=== PATIENT | male | born 1950 | race Caucasian/White ===

== ENCOUNTER 2017-02-22 00:21 | Emergency (ER) | payer MEDICARE ==
[2017-02-22] MEDS ORDERED: ASPIRIN 81 MG TAB.CHEW PO ONE ×2 (00:25→00:39)
[2017-02-22] MEDS ORDERED: NITROGLYCERIN 0.4 MG/TAB BTL SL PRN (00:25)
[2017-02-22 00:34] LABS: Hematocrit 36.8 % (42.0-52.0); Hemoglobin 12.6 gm/dL (13.5-18.0); Mean Cell Volume 89.8 fl (78-100); Mean Corpuscular Hemoglobin 30.7 pg (27-31); Mean Corpuscular Hgb Conc 34.2 g/dl (32-36); Mean Platelet Volume 9.4 fl (6.0-9.5); Neutrophil # 5.9 K/mm3 (1.3-6.0); Neutrophil % 64.9 % (42-75.0); Platelet Count 219 K/mm3 (150-450); Red Cell Distribution Width 13.6 % (11.5-14.0); White Blood Count 9.1 K/mm3 (4.0-10.5)
[2017-02-22] MEDS ORDERED: ASPIRIN 81 MG TAB.CHEW ONE (00:36)
[2017-02-22 00:44] LABS: Prothrombin Time (Patient) 9.5 Seconds (9.4-11.4)
[2017-02-22 00:46] LABS: INR 0.91 INR (0.90-1.10)
[2017-02-22 00:47] LABS: Partial Thrombolplastin Time 26.1 Seconds (24-32)
[2017-02-22 01:19] LABS: ALT 37 U/L (19-67); AST 19 U/L (0-48); Albumin * 3.6 gm/dl (3.4-5.0); Alkaline Phosphatase * 87 U/L (50-170); Anion Gap 13.9 mmol/L (6.8-13.8); BUN/Creatinine Ratio 21.4 (9.0-21.6); Bilirubin, Total 0.5 mg/dL (0.0-1.1); Blood Urea Nitrogen 28 mg/dL (6-23); Ca. Corrected For Albumin 8.6 mg/dL (8.4-10.2); Calcium * 8.6 mg/dL (7.9-10.9); Carbon Dioxide 28.4 mmol/L (24-32.6); Chloride 104 mmol/L (97-106); Glucose * 177 mg/dL (70-110); Potassium 3.3 mmol/L (3.4-4.6); Sodium 143 mmol/L (132-142); Total Protein 7.4 gm/dL (6.2-8.2); Troponin I Less than 0.017 ng/ml (0.00-0.10)
--- NOTE | 2017-02-22 06:06 | ERNOTE ---
Chest Pain/Cardiac HPI Date of Service: 02/22/17 Chief Complaint: Chest Pain Time Seen by Provider: 02/22/17 00:24 Source: patient Exam Limitations: no limitations Immunizations: IMMUNIZATION HX Immunizations Up to Date No History of Influenza Vaccine No Hx Pneumococcal Vaccination No Allergies/Adverse Reactions: Allergies No Known Drug Allergies Allergy (Verified 02/22/17 00:35) Home Medications: HOME MEDICATIONS Aspirin 81 mg PO DAILY 02/22/17 [Last Taken Unknown] Irbesartan/Hydrochlorothiazide [Avalide 300-12.5 mg Tablet] 1 each PO DAILY [Last Taken Unknown] amLODIPine BESYLATE [Norvasc] 10 mg PO DAILY 02/22/17 [Last Taken Unknown] Narrative: Patient is a 66-year-old male with no local physician as he is from out of town he was visiting family in the area and was sitting quietly visiting and started to have some chest pain he reported some associated nausea all of which has significantly resolved. Patient does have a past medical history for coronary artery disease he's had 2 stents back in 2014. Patient states that the pain has completely resolved he only came to be checked out because when he had his cardiac stents he also had very little in way of symptoms. The nausea was one of the concerns and that has resolved even prior to arrival. He states the pain or discomfort was more like a like a chest tightness which resolved spontaneously without any aspirin or nitroglycerin. Since his stent sees had no significant angina he denies any problems since he was on Plavix for short- term and then was discontinued. Denies any history of arrhythmia heart failure diabetes hypertension reports that he took all of his medications today. He took an aspirin prior to coming Date (Duration): 02/22/17 Time (Timing): 23:00 Timing: resolved prior to arrival, other - Pt presents with c/o chest pressure at home around midnight that has not gone away. PT states that he has CAD and has one really bad coronary artery. Pt states when the pain started he was just laying down watching TV. Pt denies any dyspnea or diaphoresis but did have some nausea that started on his way to the ER but this has also ceased. Severity/Quality: mild Location: substernal Activities at Onset: none, other - was resting comfortably in a chair Modifying Factors - Improves: Present: nothing, other - resolve spontaneously Modifying Factors - Worsens: Present: nothing Nitro Today/Relief: no nitro taken today Aspirin Treatment Today: 325 mg x 1, provided at home Associated Symptoms: Present: denies symptoms, nausea. Absent: headache, dizziness, syncope, cough, shortness of breath, diaphoresis Prior Chest Pain/Cardiac Workup: Reports: no prior cardiac workup, cardiac cath , other - cardiac stents 2 2014 Review of Systems - Review of Systems Constitutional: Present: no symptoms reported EYE: Present: no symptoms reported ENT: Present: no symptoms reported Respiratory: Present: no symptoms reported Cardiology: Present: See HPI Gastrointestinal/Abdominal: Present: See HPI, nausea Genitourinary: Present: no symptoms reported Musculoskeletal: Present: no symptoms reported Skin: Present: no symptoms reported Neurological: Present: no symptoms reported Endocrine: Present: no symptoms reported Hematologic/Lymphatic: Present: no symptoms reported All Other Systems: All systems neg except as marked - Narrative Narrative: Reviewed past medical history with patient and past surgical history as well as cardiovascular history. - Patient's Past Medical History Patient History - Medical: Diabetes Type 2 Patient History - Cardiac/Respiratory: Coronary Heart Disease, Hypertension Patient History - Cancer: Skin Patient History - Surgical Procedures: Cancer Surgery Patient History - Other: None - Social History Living Situations: home Psych History: No pertinent hx Smoking Status: Current every day smoker Alcohol Use: none Drug Use: none - Immunizations Immunizations Up to Date: No Hx Pneumococcal Vaccination: No History of Influenza Vaccine: No Physical Exam - Physical Exam General Appearance: Present: wd/wn, alert, no apparent distress Head Exam: Present: normal inspection, no evidence of injury Ears, Nose, Throat: Present: normal ENT inspection, normal pharynx Neck: Present: normal inspection, nontender Respiratory: Present: no respiratory distress, normal breath sounds Cardiovascular/Chest: Present: regular rate, rhythm, no murmur, normal peripheral pulses Gastrointestinal/Abdominal: Present: normal bowel sounds, nontender, nondistended, soft, no organomegaly Rectal Exam: Present: deferred Back Exam: Present: normal inspection, normal range of motion, no CVA tenderness Neurological Exam: Present: alert, oriented, normal mood/affect, no motor/ sensory deficits Skin Exam: Present: normal color, warm/dry Lymphatic Exam: Present: no adenopathy ED Progress - Results and Orders Patient's Lab Results:: I have reviewed the patient's lab results. Results and Orders: Laboratory Tests 02/22/17 02/22/17 02/22/17 00:30 00:30 00:30 WBC 9.1 RBC 4.10 L Hgb 12.6 L Hct 36.8 L MCV 89.8 MCH 30.7 MCHC 34.2 RDW 13.6 Plt Count 219 MPV 9.4 Immature Gran % (Auto) 0.20 Immature Gran # (Auto) 0.02 Neutrophils % 64.9 Lymphocytes % 22.9 Monocytes % 7.5 Eosinophils % 3.6 H Basophils % 0.9 Nucleated RBC % 0.0 Neutrophils # 5.9 Lymphocytes # 2.1 Monocytes # 0.7 Eosinophils # 0.3 Absolute Basophils 0.1 PT 9.5 INR (Anticoag Therapy) 0.91 PTT ([place]) 26.1 Sodium 143 H Plasma Sodium 144 H Potassium 3.3 L Chloride 104 Carbon Dioxide 28.4 Anion Gap 13.9 H BUN 28 H Creatinine 1.31 Est GFR (Non-Af Amer) 58 L BUN/Creatinine Ratio 21.4 Random Glucose 177 H Calcium 8.6 Calcium Adj for Albumin 8.6 Total Bilirubin 0.5 AST 19 ALT 37 Alkaline Phosphatase 87 Troponin I Less than 0.017 Total Protein 7.4 Albumin 3.6 02/22/17 04:00 WBC RBC Hgb Hct MCV MCH MCHC RDW Plt Count MPV Immature Gran % (Auto) Immature Gran # (Auto) Neutrophils % Lymphocytes % Monocytes % Eosinophils % Basophils % Nucleated RBC % Neutrophils # Lymphocytes # Monocytes # Eosinophils # Absolute Basophils PT INR (Anticoag Therapy) PTT ([place]) Sodium Plasma Sodium Potassium Chloride Carbon Dioxide Anion Gap BUN Creatinine Est GFR (Non-Af Amer) BUN/Creatinine Ratio Random Glucose Calcium Calcium Adj for Albumin Total Bilirubin AST ALT Alkaline Phosphatase Troponin I 0.032 Total Protein Albumin - Vital Signs Patient's Vital Signs:: I have reviewed the patient's vital signs. Vital Signs: Vital Signs 02/22/17 02/22/17 02/22/17 00:26 00:35 00:50 Temperature 37.3 C Pulse Rate 86 80 78 Respiratory 18 18 18 Rate Blood Pressure 141/84 157/76 145/83 O2 Sat by Pulse 96 96 96 Oximetry 02/22/17 02/22/17 02/22/17 01:06 01:21 01:54 Temperature Pulse Rate 81 82 70 Respiratory 13 16 18 Rate Blood Pressure 142/73 142/77 145/80 O2 Sat by Pulse 96 95 97 Oximetry 02/22/17 02/22/17 02/22/17 02:35 03:19 03:59 Temperature Pulse Rate 82 64 68 Respiratory 18 18 18 Rate Blood Pressure 125/82 128/84 150/82 O2 Sat by Pulse 98 98 98 Oximetry 02/22/17 04:46 Temperature Pulse Rate 68 Respiratory 18 Rate Blood Pressure 135/76 O2 Sat by Pulse 98 Oximetry - EKG EKG read: Interp. by me EKG Comments: EKG done OO:20 6 AM sinus rhythm 86 bpm normal ECG no evidence of acute STEMI. None prior available for comparison patient is from out of town. - X-Ray X-Ray #1 X-Ray: chest Interpretation: Reviewed by me X-ray Comments: Patient Patient Name:SAMMY ZARAGOZA Date: 1950 Sex: M Order Number: [id number] Unique Exam ID: [id number] Exam Requested: CXRPALAT - Chest PA Lateral * Date Scheduled: 02-22-2017 01:06 AM Study Priority: Requesting Service: Requesting Physician: Meche Mays Reason for Exam: Chest Pain Radiological Report : [place] [address] NAME: SAMMY ZARAGOZA : 1950 MR #: [id number] CC: Meche Mays DO LOC: ADM DATE: X-RAY REPORT [id number] RAD/Chest PA Lateral * Exam Date: 02/22/2017 01:06 Ordering Physician: Meche Mays History: Chest pain. Chest pressure. Left arm numbness. Technique: PA and lateral views. Three images utilized. Comparison: None Findings: Heart size and vascularity appear within normal limits. Heart size is upper limits of normal. There are granulomatous and atherosclerotic calcifications. There are no focal infiltrates or effusions. There is no pneumothorax. IMPRESSION: NO ACUTE CARDIOPULMONARY DISEASE IDENTIFIED. Electronically signed by Branden Sumner M.D.. - Progress/Reassessment Chief Complaint: Chest Pain Plan - Plan Plan: Due to patient's history of previous coronary artery disease treatment. 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 Departure - Departure Clinical Impression: Chest pain Qualifiers: Chest pain type: other chest pain Qualified Code(s): R07.89 - Other chest pain Disposition: Home self-care Condition: Fair Instructions: Acute Coronary Syndrome, Chest Wall Pain Additional Instructions: follow up with your family doctor in [facility] upcoming appointment with his masonry teacher as noted previously
[2017-02-22 06:11] VITALS: BP 146/80
== END 2017-02-22 06:08 | disposition home or self-care (01) ==
LOC: ER 00:21
DX: R07.89 Other chest pain (principal); E11.9 Type 2 diabetes mellitus without complications; I25.2 Old myocardial infarction; I10 Essential (primary) hypertension; Z85.828 Personal history of other malignant neoplasm of skin; F17.200 Nicotine dependence, unspecified, uncomplicated